=== PATIENT | female | born 1955 | race Caucasian/White ===

== ENCOUNTER 2017-08-06 13:26 | Outpatient (CLI) | payer OTHER ==
--- NOTE | 2017-08-06 17:20 | MRI ---
MRI LUMBAR SPINE NONCONTRAST 08/06/17 HISTORY: Low back pain. Neurogenic bladder. FINDINGS: Radiographs are not available for direct correlation, therefore, the lowest lumbar type vertebrae wi ll be designated as L5 with the remainder numbered accordingly. The conus medullaris has a normal appearance. Vertebral body heights are maintained. There is desicc ation of the lowest three intervertebral discs. T12-L1, L1-2, L2-3: Mild osteophytosis is present. The central canal and neural foramina are patent. L3-4: Posterior disc bulge, along with facet joint hypertrophy and ligamentous thickening, results i n moderate stenosis of the central canal and mild stenosis of each neural foramen. L4-5: There is disc space narrowing and minimal degenerative retrolisthesis at this level. Posterior disc bulge, along with facet joint hypertrophy and ligamentous thickening, result in severe stenosi s of the central canal and moderate stenosis of each neural foramen. L5-S1: Posterior disc bulge is present. Degenerative changes result in mild stenosis of the central canal and moderate stenosis of each neural foramen. IMPRESSION: Degenerative changes of the lower lumbar spine as detailed above, with stenosis most severe at the c entral canal at the L4-5 level. POS: QUINN
--- NOTE | 2017-08-06 17:23 | MRI ---
MRI THORACIC SPINE NONCONTRAST: 08/06/17 HISTORY: Back pain. Neurogenic bladder. FINDINGS: The spinal cord throughout the thoracic levels has a normal appearance without evidence of compressi on, expansion or abnormal signal. Vertebral body heights and alignment are maintained. Bone marrow s ignal is within normal limits. The central canal and neural foramina are patent. IMPRESSION: No significant abnormalities of the thoracic spine are demonstrated. POS: JEANNETTE
== END 2017-08-06 13:27 | disposition home or self-care (01) ==
LOC: SCSMRI 13:26
DX: N31.9 Neuromuscular dysfunction of bladder, unspecified (principal); M47.896 Other spondylosis, lumbar region; M48.06 Spinal stenosis, lumbar region
CPT/HCPCS: 72146; 72148